=== PATIENT | female | born 1960 | race Two or more races ===

== ENCOUNTER 2018-10-15 13:12 | Emergency (ER) | payer OTHER ==
[~2018-10-15] VITALS: Ht 157.5 cm; Wt 54.4 kg
[2018-10-15 13:52] LABS: CALCIUM 8.7 mg/dL (8.5-10.1); GFR 56.6; POTASSIUM 3.1 mmol/L (3.5-5.1)
[2018-10-15 13:54] LABS: BASO % 0 % (0-3); EOS % 0 % (0-3); HEMATOCRIT 41.4 % (36.0-47.0); HEMOGLOBIN 14.4 g/dL (12.0-15.5); LYMPH # 1.3 x10^3/uL (1.0-4.8); LYMPH % 25 % (24-48); MEAN CORPUSCULAR HEMOGLOBIN 29 pg (25-35); MEAN CORPUSCULAR HGB CONC 35 g/dL (31-37); MEAN CORPUSCULAR VOLUME 85 fL (79-100); MONO # 0.5 x10^3/uL (0.0-1.1); MONO % 10 % (0-9); NEUT # 3.4 x10^3/uL (1.8-7.7); NEUT % 65 % (31-73); PLATELET COUNT 91 x10^3/uL (140-400); RED BLOOD COUNT 4.89 x10^6/uL (3.50-5.40); RED CELL DISTRIBUTION WIDTH 12.7 % (11.5-14.5); WHITE BLOOD COUNT 5.3 x10^3/uL (4.0-11.0)
[2018-10-15 13:56] LABS: PROTHROMBIN TIME PATIENT 13.3 SEC (11.7-14.0)
[2018-10-15 13:58] LABS: ALBUMIN 3.4 g/dL (3.4-5.0); ALBUMIN/GLOBULIN RATIO 0.6 (1.0-1.7); TOTAL BILIRUBIN 0.8 mg/dL (0.2-1.0); TOTAL PROTEIN 8.7 g/dL (6.4-8.2)
--- NOTE | 2018-10-15 14:15 | RAD ---
Chest radiograph 10/15/2018 1:19 PM INDICATION: Chest pain COMPARISON: September 13, 2015 TECHNIQUE: Frontal view of the chest is provided. FINDINGS: The cardiomediastinal silhouette is within normal limits. There are no pleural effusions. There is no pulmonary vascular congestion. There is no pneumothorax. The lungs are clear. Nodular opacity left lower lobe favors a nipple shadow. No significant osseous abnormality is identified. IMPRESSION: No acute cardiopulmonary process. Electronically signed by: Denise Jimenez MD (10/15/2018 2:12 PM) [id number]
--- NOTE | 2018-10-15 16:06 | EKG ---
[facility] [address] [place] [address] Test Date: 2018-10-15 Test Time: 13:21:11 Pat Name: MICHELLE [facility] Department: Room: Gender: F [employer]er: : 1960 Requested By: SUSAN ANGULO Order Number: [id number] Reading MD: Measurements Intervals [place] Rate: 96 P: 45 RI: 134 QRS: 6 QRSD: 82 T: 14 QT: 360 QTc: 462 Interpretive Statements SINUS RHYTHM LEFT ATRIAL ABNORMALITY LOW LIMB LEAD VOLTAGE QRS(T) CONTOUR ABNORMALITY CONSIDER ANTEROSEPTAL MYOCARDIAL DAMAGE ABNORMAL ECG RI6.01 No previous ECG available for comparison
[2018-10-15 17:09] LABS: BILIRUBIN,URINE SMALL (NEG); CLARITY,URINE CLEAR; COLOR,URINE AMBER; NITRITE,URINE NEGATIVE (NEG); PROTEIN,URINE >=300 mg/dL (NEG-TRACE)
[2018-10-15 17:17] LABS: BACTERIA,URINE FEW /HPF (0-FEW); HYALINE CASTS, URINE FEW /HPF; RBC,URINE OCC /HPF (0-2)
[2018-10-15 17:18] LABS: SQUAMOUS EPITHELIAL CELL,UR MOD /LPF
--- NOTE | 2018-10-15 17:24 | PHYS DOC ---
Past Medical History Past Medical History: No Pertinent History Past Surgical History: No Surgical History Alcohol Use: None Drug Use: None Adult General Chief Complaint Chief Complaint: OTHER COMPLAINTS [facility] HPI Patient is a 58 year old female with language barrier presented to ER with her daughter with multiple medical complaint. Patient complained of epigastric abdominal pain, chest pain for several weeks. Patient is also complaint of lower abdominal pain and lower back pain. She denies any injury. Patient denies drinking alcohol denies history of smoking. She says she coughed up trace of blood off and on mostly in the morning. Patient denies any weight loss. Patient denies any fever. Patient denies any history of heart disease, no history of blood clot disorder. Patient denies any recent operation or travel. Patient also has some headache yesterday, took Somr of her friend headache medication that made her feel sick. Patient is a very poor historian. Review of Systems Review of Systems Constitutional: Denies fever or chills [] Eyes: Denies change in visual acuity, redness, or eye pain [] HENT: Denies nasal congestion or sore throat [] Respiratory: Positive for cough, no shortness of breath [] Cardiovascular: No additional information not addressed in HPI [] GI: Positive for abdominal pain, nausea, vomiting, NO bloody stools or diarrhea [] : Denies dysuria or hematuria [] Musculoskeletal: Denies back pain or joint pain [] Integument: Denies rash or skin lesions [] Neurologic: Denies headache, focal weakness or sensory changes [] Endocrine: Denies polyuria or polydipsia [] All other systems were reviewed and found to be within normal limits, except as documented in this note. Current Medications Current Medications Current Medications Medications (Trade) Dose Ordered Sig/Marina Start Time Stop Time Status Last Admin Dose Admin Famotidine (Pepcid Vial) 20 mg 1X ONCE 10/15/18 18:00 10/15/18 18:01 DC 10/15/18 17:40 20 MG Info (CONTRAST GIVEN -- Rx MONITORING) 1 each PRN DAILY PRN 10/15/18 18:15 10/17/18 18:14 Iohexol (Omnipaque 300 Mg/ml) 60 ml 1X ONCE 10/15/18 18:30 10/15/18 18:31 Morphine Sulfate (Morphine Sulfate) 4 mg 1X ONCE 7/17/19 18:15 10/15/18 18:16 Multi-Ingredient Mouthwash/Gargle (Gi Cocktail) 20 ml 1X ONCE 10/15/18 18:00 10/15/18 18:01 DC 10/15/18 17:40 20 ML Sodium Chloride 1,000 ml @ 1,000 mls/hr 1X ONCE 10/15/18 17:30 10/15/18 18:29 Allergies Allergies Allergies Coded Allergies Type Severity Reaction Last Updated Verified No Known Drug Allergies 10/15/18 No Physical Exam Physical Exam Constitutional: Well developed, well nourished, no acute distress, non-toxic appearance. [] HENT: Normocephalic, atraumatic, bilateral external ears normal, oropharynx moist, no oral exudates, nose normal. [] Eyes: PERRLA, EOMI, conjunctiva normal, no discharge. [] Neck: Normal range of motion, no tenderness, supple, no stridor. [] Cardiovascular:Heart rate regular rhythm, no murmur [] Lungs & Thorax: Bilateral breath sounds clear to auscultation [] Abdomen: Bowel sounds normal, soft, There is tenderness to palpation in epigastric area and RUQ area, no masses, no pulsatile masses. [] Skin: Warm, dry, no erythema, no rash. [] Back: No tenderness, no CVA tenderness. [] Extremities: No tenderness, no cyanosis, no clubbing, ROM intact, no edema. [] Neurologic: Alert and oriented X 3, normal motor function, normal sensory f unction, no focal deficits noted. [] Psychologic: Affect normal, judgement normal, mood normal. [] Current Patient Data Vital Signs Vital Signs Date Time Temp Pulse Resp B/P (MAP) Pulse Ox O2 Delivery O2 Flow Rate FiO2 10/15/18 13:12 98.0 93 16 125/74 (91) 95 Room Air 98.0 Lab Values Laboratory Tests Test 10/15/18 13:30 10/15/18 16:57 White Blood Count 5.3 x10^3/uL (4.0-11.0) Red Blood Count 4.89 x10^6/uL (3.50-5.40) Hemoglobin 14.4 g/dL (12.0-15.5) Hematocrit 41.4 % (36.0-47.0) Mean Corpuscular Volume 85 fL (79-100) Mean Corpuscular Hemoglobin 29 pg (25-35) Mean Corpuscular Hemoglobin Concent 35 g/dL (31-37) Red Cell Distribution Width 12.7 % (11.5-14.5) Platelet Count 91 x10^3/uL (140-400) L Neutrophils (%) (Auto) 65 % (31-73) Lymphocytes (%) (Auto) 25 % (24-48) Monocytes (%) (Auto) 10 % (0-9) H Eosinophils (%) (Auto) 0 % (0-3) Basophils (%) (Auto) 0 % (0-3) Neutrophils # (Auto) 3.4 x10^3/uL (1.8-7.7) Lymphocytes # (Auto) 1.3 x10^3/uL (1.0-4.8) Monocytes # (Auto) 0.5 x10^3/uL (0.0-1.1) Eosinophils # (Auto) 0.0 x10^3/uL (0.0-0.7) Basophils # (Auto) 0.0 x10^3/uL (0.0-0.2) Prothrombin Time 13.3 SEC (11.7-14.0) Prothrombin Time INR 1.0 (0.8-1.1) PTT 28 SEC (24-38) Sodium Level 131 mmol/L (136-145) L Potassium Level 3.1 mmol/L (3.5-5.1) L Chloride Level 93 mmol/L (98-107) L Carbon Dioxide Level 25 mmol/L (21-32) Anion Gap 13 (6-14) Blood Urea Nitrogen 11 mg/dL (7-20) Creatinine 1.0 mg/dL (0.6-1.0) Estimated GFR (Cockcroft-Gault) 56.6 BUN/Creatinine Ratio 11 (6-20) Glucose Level 270 mg/dL (70-99) H Calcium Level 8.7 mg/dL (8.5-10.1) Total Bilirubin 0.8 mg/dL (0.2-1.0) Aspartate Amino Transferase (AST) 87 U/L (15-37) H Alanine Aminotransferase (ALT) 79 U/L (14-59) H Alkaline Phosphatase 105 U/L (46-116) Creatine Kinase 292 U/L (26-192) H Creatine Kinase MB (Mass) 1.1 ng/mL (0.0-3.6) Creatine Kinase MB Relative Index 0.4 % (0-4) Troponin I Quantitative < 0.017 ng/mL (0.000-0.055) CJ-Ebu-B-Type Natriuretic Peptide 59 pg/mL (0-124) Total Protein 8.7 g/dL (6.4-8.2) H Albumin 3.4 g/dL (3.4-5.0) Albumin/Globulin Ratio 0.6 (1.0-1.7) L Lipase 295 U/L (73-393) Urine Collection Type Unknown Urine Color Charis Urine Clarity Clear Urine pH 6.0 Urine Specific [place] >=1.030 Urine Protein >=300 mg/dL (NEG-TRACE) Urine Glucose (UA) 500 mg/dL (NEG) Urine Ketones (Stick) 40 mg/dL (NEG) Urine Blood Negative (NEG) Urine Nitrite Negative (NEG) Urine Bilirubin Small (NEG) Urine Urobilinogen Dipstick 1.0 mg/dL (0.2 mg/dL) Urine Leukocyte Esterase Trace (NEG) Urine RBC Occ /HPF (0-2) Urine WBC 5-10 /HPF (0-4) Urine Squamous Epithelial Cells Mod /LPF Urine Bacteria Few /HPF (0-FEW) Urine Hyaline Casts Few /HPF Urine Mucus Mod /LPF Laboratory Tests 10/15/18 13:30 Laboratory Tests 10/15/18 13:30 EKG EKG EKG WAS READ BY THIS PHYSICIAN AT 1325, RATE OF 96 BPM, NO STEMI. [] Radiology/Procedures Radiology/Procedures [][facility] [address] [place] [address] IMAGING REPORT Signed PATIENT: CORA AGUILAR ACCOUNT: [id number] : 03/02/1938 LOCATION: ER AGE: 80 SEX: M EXAM STATUS: PRE ER ORD. PHYSICIAN: SUSAN ANGULO DO REASON: shortness of air PROCEDURE: PORTABLE CHEST 1V PORTABLE CHEST 1V Clinical indications: Shortness of air. COMPARISON: October 14, 2018. Findings: Old granulomatous disease is evident. No acute lung infiltrate or pleural effusion or pulmonary edema or lung mass or pneumothorax is seen. The heart size, pulmonary vasculature, mediastinum and both tanvir are stable. Impression: COPD. No acute radiographic abnormality is seen. Electronically signed by: Hemalatha Scott MD (10/15/2018 2:48 PM) [facility] DICTATED and SIGNED BY: HEMALATHA SCOTT MD DATE: 10/15/18 1448 Course & Med Decision Making Course & Med Decision Making Pertinent Labs and Imaging studies reviewed. (See chart for details) Patient is a 58-year-old female presenting with multiple complain that been going on for at least 3 weeks. EKG and cardiac exam normal. She had abNormally liver function tests, ultrasound shown fatty liver, no gallstones. She will get a CT scan of her chest and her abdomen and pelvic. If these studies turned out to be normal, patient can be discharged home with Carafate and prilosec for gastritis. Patient will need to follow up with GI specialist for outpatient evaluation. This physician does not think patient has acute coronary artery disease at this time. Patient's care was turned over to Dr. Herbie Kraus at shift change at 6pm. Final disposition will be done by Dr. Kraus. Vignesh Disclaimer Vignesh Disclaimer This electronic medical record was generated, in whole or in part, using a voice recognition dictation system. Departure Departure Impression: Primary Impression: Acute gastritis Referrals: UNKNOWN PCP NAME (PCP) SUSAN ANGULO DO Oct 15, 2018 17:24
[2018-10-15] MEDS ORDERED: IV NORMAL SALINE 1000ML BAG 1,000 ML IV ONE ×2 (17:30→18:00)
[2018-10-15] MEDS ORDERED: LIDO:MAALOX 1:1 20 ML SINGLE DOSE. SWSW ONE (18:00)
[2018-10-15] MEDS ORDERED: FAMOTIDINE 20 MG/2 ML VIAL IVP ONE (18:00)
[2018-10-15] MEDS ORDERED: CONTRAST GIVEN. MC PRN (18:15)
[2018-10-15] MEDS ORDERED: MORPHINE SULFATE 4 MG/ML VIAL. IV ONE (18:15)
[2018-10-15] MEDS ORDERED: IOHEXOL 300 MG/ML 100ML VIAL. IV ONE (18:30)
--- NOTE | 2018-10-15 18:31 | RAD ---
Abdominal ultrasound right upper quadrant: Reason for examination: Epigastric and right upper quadrant abdominal pain. No abnormality seen at the pancreas. The inferior vena cava shows no gross abnormality. The liver is normal in size at 16.6 cm and shows no focal lesions but there is fatty infiltration. The gallbladder shows no cholelithiasis, sludge or wall thickening. Right kidney measures 10 x 4.2 x 4.8 cm in greatest dimension and shows normal cortical medullary differentiation and good vascular flow. The right kidney does contain a small nodule at the midpole which is hyperechoic and measures 1.5 cm in greatest dimension and likely represents an angiomyolipoma however small hyperechoic malignancy cannot be excluded and follow-up is recommended. IMPRESSION: Fatty liver. 1.5 cm echogenic lesion in the right kidney. This likely represents an angiomyolipoma however a hyperechoic malignancy cannot be excluded. Recommend follow-up. Electronically signed by: Shayy Allred MD (10/15/2018 6:28 PM) [facility]
[2018-10-15] MEDS ORDERED: IOHEXOL 350 MG/ML 100 ML VIAL. ONE (18:39)
--- NOTE | 2018-10-15 19:52 | RAD ---
CT angiogram of the chest with contrast: Reason for examination: Chest pain. Coughing up blood off-and-on for several weeks. Helical images were obtained through the chest with intravenous administration of 75 cc Omnipaque 350 using PE protocol. 3-D MIPS reconstruction was performed in sagittal and coronal planes. No abnormality seen at the thyroid gland. The trachea and mainstem bronchi show no intraluminal lesions. No abnormality seen at the esophagus. The thoracic aorta shows no aneurysmal dilatation or dissection. The heart size is normal with no pericardial effusion. There is no evidence of pulmonary embolus. The lung richardson show no consolidated infiltrates or pleural effusions. There is however some linear atelectasis in the right middle lobe and lingula. There is also some apical pleural thickening bilaterally, right greater than left. No acute bony abnormalities are evident. IMPRESSION: No evidence of pulmonary embolus. Linear atelectasis in the right middle lobe and lingula. Mild apical pleural thickening, right greater than left. CT abdomen pelvis with contrast: Helical images were obtained through the abdomen and pelvis with intravenous contrast administered. Reconstruction was performed in sagittal and coronal planes. The liver shows no focal lesion but there does appear to be some mild fatty infiltration present. No abnormality seen at the spleen, adrenal glands, pancreas or gallbladder. The abdominal aorta and inferior vena cava show no acute abnormalities. The colon shows no diverticulosis or diverticulitis or evidence of colitis. The stomach is not distended. No abnormality seen at the duodenum. The small intestinal tract shows no abnormal dilatation, wall thickening or obstruction. The kidneys shows a hypoechoic fat-containing lesion at the midpole of the right kidney measuring 1.5 cm in greatest dimension consistent with a angiomyolipoma. There also appears to be a small 4.5 mm cyst in the upper pole of the left kidney. No renal calculi, hydronephrosis or obstructive uropathy is seen. Note is made however of a small lymph nodes within the mesentery measuring up to 1.2 cm in greatest dimension. The bladder is not optimally distended. No bladder wall thickening is evident. No abnormality seen at the uterus or ovaries. No acute bony abnormalities are evident. IMPRESSION: 1.5 cm fat-containing nodule at the midpole of the right kidney consistent with a angiomyolipoma. 4.5 mm cyst at the upper pole of the left kidney. Fatty liver without focal lesion. Mesenteric adenopathy with lymph nodes measuring up to 1.2 cm in greatest dimension. Exposure: One or more of the following individualized dose reduction techniques were utilized for this examination: 1. Automated exposure control 2. Adjustment of the mA and/or kV according to patient size 3. Use of iterative reconstruction technique. Electronically signed by: Shayy Allred MD (10/15/2018 7:49 PM) [facility]
[2018-10-15] MEDS ORDERED: SUCR1TAB35 PO (20:01)
[2018-10-15] MEDS ORDERED: OMEP20TA63 PO (20:01)
[2018-10-15 20:28] VITALS: BP 93/57
== END 2018-10-15 21:03 | disposition home or self-care (01) ==
LOC: ER 13:12
DX: K29.00 Acute gastritis without bleeding (principal); J44.9 Chronic obstructive pulmonary disease, unspecified
CPT/HCPCS: 36415; 71045; 71275; 74177; 76705; 80053; 81001; 82550; 82553; 83690; 83880; 84484; 85025; 85610; 85730; 87086; 93005; 96361; 96374; 96375; 99285; J2270; J3490; J7030; Q9967